=== PATIENT | male | born 1965 | race Caucasian/White ===

== ENCOUNTER 2018-04-30 13:56 | Emergency (ER) | payer MEDICAID ==
[~2018-04-30] VITALS: Ht 162.6 cm; Wt 83.9 kg
[2018-04-30] MEDS ORDERED: cloNIDine HCL 0.1 MG TAB ONE (14:10)
[2018-04-30] MEDS ORDERED: cloNIDine HCL 0.1 MG TAB PO ONE (14:15)
[2018-04-30] MEDS ORDERED: amLODIPine BESYLATE 5 MG TAB PO ONE (15:30)
[2018-04-30 16:50] VITALS: BP 176/98
== END 2018-04-30 16:51 | disposition home or self-care (01) ==
LOC: ER 13:56
DX: I10 Essential (primary) hypertension (principal); R51 Headache; R42 Dizziness and giddiness; F17.210 Nicotine dependence, cigarettes, uncomplicated
CPT/HCPCS: 82962